=== PATIENT | female | born 1945 | race Caucasian/White ===

== ENCOUNTER 2021-01-22 11:33 | Observation (INO) | payer MEDICARE, MEDICAID ==
[~2021-01-22] VITALS: Ht 144.8 cm; Wt 47.3 kg
[2021-01-22 13:21] LABS: BASOPHILS # (AUTO) 0.1 X10'3 (0-0.2); BASOPHILS % (AUTO) 1.3 % (0-1); EOSINOPHILS # (AUTO) 0.3 X10'3 (0-0.9); EOSINOPHILS % (AUTO) 3.5 % (0-6); HEMATOCRIT 41.9 % (35.0-45.0); HEMOGLOBIN 14.1 g/dl (12.0-16.0); LYMPHOCYTES # (AUTO) 2.2 X10'3 (1.1-4.8); LYMPHOCYTES % (AUTO) 27.8 % (21-51); MEAN CORPUSCULAR HEMOGLOBIN 30.4 PG (27.0-31.0); MEAN CORPUSCULAR HGB CONC 33.6 g/dL (33.0-36.5); MEAN CORPUSCULAR VOLUME 90.5 FL (78-98); MEAN PLATELET VOLUME 6.9 FL (7.4-10.4); MONOCYTES # (AUTO) 0.7 X10'3 (0-0.9); NEUTROPHILS # (AUTO) 4.6 X10'3 (1.8-7.7); NEUTROPHILS % (AUTO) 58.4 % (42-75); PLATELET COUNT 328 X10'3 (140-440); RED BLOOD COUNT 4.63 X10'6 (4.20-5.60); RED CELL DISTRIBUTION WIDTH 14.1 % (11.5-14.5); WHITE BLOOD COUNT 7.8 X10'3 (4.5-11.0)
[2021-01-22 13:38] LABS: ALANINE AMINOTRANSFERASE 14 U/L (12-78); ALBUMIN 3.9 G/DL (3.4-5.0); ALBUMIN/GLOBULIN RATIO 1.1 (1.1-1.5); ALKALINE PHOSPHATASE 87 IU/L (46-116); ANION GAP 8 (8-16); ASPARTATE AMINO TRANSFERASE 20 U/L (10-37); BILIRUBIN,TOTAL 0.3 MG/DL (0.1-1.0); BLOOD UREA NITROGEN 9 MG/DL (7-18); BUN/CREATININE RATIO 10.3 (6.6-38.0); CALCIUM 9.1 MG/DL (8.5-10.1); CHLORIDE 98 MMOL/L (99-107); CREATININE 0.87 MG/DL (0.40-0.90); GLUCOSE 102 MG/DL (70-104); POTASSIUM 4.3 MMOL/L (3.5-5.1); SODIUM 134 MMOL/L (135-145); TOTAL CARBON DIOXIDE 27.9 MMOL/L (24-32); TOTAL PROTEIN 7.3 G/DL (6.4-8.2); eGFR 63 ML/MIN
--- NOTE | 2021-01-22 17:58 | NUR ---
PT IS AMBULATING WITH NO WEAKNESS NOTED. GAIT IS STEADY. SPEECH IS CLEAR, NO FACIAL DROOPING. NO ALOC
--- NOTE | 2021-01-22 18:01 | NUR ---
URINE COLLECTED. SENT TO LAB
[2021-01-22 18:34] LABS: CLARITY,URINE CLEAR (Clear); COLOR,URINE YELLOW (Yellow); GLUCOSE, URINE NEGATIVE (Neg); KETONES,URINE NEGATIVE (Neg); LEUKOCYTE ESTERASE ,URINE NEGATIVE (Neg); NITRITES, URINE NEGATIVE (Neg); OCCULT BLOOD,URINE NEGATIVE (Neg); PH,URINE 6.5 (4.8-8.0); PROTEIN,URINE NEGATIVE (Neg); UROBILINOGEN,URINE 0.2 E.U/dL (0.2-1.0)
--- NOTE | 2021-01-22 18:49 | NUR ---
Feli, daughter: [phone]
[2021-01-22 19:27] LABS: UA COLLECTION TYPE NON-SPECIFIED
[2021-01-22] MEDS ORDERED: DULO-31 PO ×2 (21:51→22:21)
[2021-01-22] MEDS ORDERED: AMLO2.5T2 PO (21:52)
[2021-01-22] MEDS ORDERED: APIX5TAB3 PO (21:54)
[2021-01-22] MEDS ORDERED: OXYB15TA19 PO ×2 (21:55→21:56)
[2021-01-22] MEDS ORDERED: OMEP40CA21 PO (21:56)
[2021-01-22] MEDS ORDERED: OLME5TAB3 PO (21:57)
[2021-01-22] MEDS ORDERED: ALEN70TA60 PO (21:58)
[2021-01-22] MEDS ORDERED: CALC1TAB2 PO (22:07)
[2021-01-22] MEDS ORDERED: HYDR-3973 (22:07)
[2021-01-22] MEDS ORDERED: HYDR-3686 PO (22:07)
[2021-01-22] MEDS ORDERED: HYDR-3972 PO (22:36)
[2021-01-22] MEDS ORDERED: acetaminophen 325mg tablet PO PRN (22:40)
[2021-01-22] MEDS ORDERED: magnesium hydroxide 30ml (MOM) UD suspension PO PRN (22:40)
[2021-01-22] MEDS ORDERED: ondansetron/PF 4mg/2ml inj IV PRN (22:40)
[2021-01-22] MEDS ORDERED: PERFLUTREN PROTEIN-A MICROSPHR (Optison) 0.22 MG/ML 3ML VIAL IV PRN (22:40)
[2021-01-22] MEDS: HYDROcodone/acetaminophen 10/325mg tab PO PRN (23:19)
[2021-01-22 23:52] VITALS: BP 162/75
[2021-01-23 06:00] VITALS: BP 153/85
--- NOTE | 2021-01-23 06:06 | NUR ---
Problems reprioritized. Patient report given, questions answered & plan of care reviewed with LULI Schilling.
[2021-01-23] MEDS ORDERED: heparin, porcine 5000 units/ml vial SQ SCH (08:00)
[2021-01-23] MEDS ORDERED: amLODIPine 2.5mg tablet PO SCH (08:00)
[2021-01-23] MEDS ORDERED: duloxetine 30mg CAPSULE.DR PO SCH (08:00)
[2021-01-23] MEDS: apixaban 5mg tablet PO SCH ×2 (08:42→20:31)
[2021-01-23] MEDS: pantoprazole 40mg Tablet.DR PO SCH (08:42)
[2021-01-23] MEDS: losartan 50mg tablet PO SCH (08:44)
[2021-01-23] MEDS: HYDROcodone/acetaminophen 10/325mg tab PO PRN ×2 (08:45→16:25)
[2021-01-23] MEDS: duloxetine 30mg CAPSULE.DR PO SCH (08:55)
[2021-01-23 10:00] VITALS: BP 149/82
[2021-01-23] MEDS: amLODIPine 5mg tablet PO SCH (10:50)
[2021-01-23] MEDS ORDERED: ZOLP5TAB8 PO (12:04)
[2021-01-23] MEDS ORDERED: ATOR40TA72 PO (12:34)
[2021-01-23] MEDS ORDERED: MONT10TA32 PO (12:34)
[2021-01-23] MEDS ORDERED: OLOP2.5D16 EACHEYE (12:34)
[2021-01-23] MEDS ORDERED: PRED5DRO3 EACHEYE (12:34)
[2021-01-23] MEDS ORDERED: iohexol 350MG/ML 100ml bottle IV ONE (15:34)
[2021-01-23 18:00] VITALS: BP 117/65
[2021-01-23] MEDS ORDERED: zolpidem 5mg tablet PO PRN (21:20)
[2021-01-23 22:00] VITALS: BP 144/75
[2021-01-24 06:00] VITALS: BP 160/93
--- NOTE | 2021-01-24 06:10 | NUR ---
RECEIVED REPORT FROM DHARA Fong RN
[2021-01-24] MEDS: HYDROcodone/acetaminophen 10/325mg tab PO PRN (06:51)
[2021-01-24] MEDS: losartan 50mg tablet PO SCH (07:19)
[2021-01-24] MEDS: pantoprazole 40mg Tablet.DR PO SCH (07:19)
[2021-01-24] MEDS: duloxetine 30mg CAPSULE.DR PO SCH (07:20)
[2021-01-24] MEDS: apixaban 5mg tablet PO SCH (07:20)
[2021-01-24 07:21] VITALS: BP_SYST 160
[2021-01-24] MEDS: amLODIPine 5mg tablet PO SCH (07:21)
[2021-01-24] MEDS ORDERED: atorvastatin 20mg tablet PO SCH (08:00)
[2021-01-24] MEDS ORDERED: montelukast 10mg tablet PO SCH (08:00)
[2021-01-24] MEDS ORDERED: DULO-31 PO (10:48)
--- NOTE | 2021-01-24 11:56 | NUR ---
pt d/c with instructions, understanding of instructions, and w/all belongings in wheelchair accompanied by nursing staff and daughter to private vehicle to f/u w/pcp
== END 2021-01-24 11:59 | disposition home or self-care (01) ==
LOC: ER 11:34 → ED HOLD 22:39 → ORTHO 4S 23:52
PROVIDERS: ADMIT Internal Medicine; ATTEND Internal Medicine
DX: G92 Toxic encephalopathy (principal); T50.905A Adverse effect of unspecified drugs, medicaments and biological substances, initial encounter; I67.4 Hypertensive encephalopathy; I10 Essential (primary) hypertension; G51.0 Bell's palsy; J44.9 Chronic obstructive pulmonary disease, unspecified; E78.5 Hyperlipidemia, unspecified; R32 Unspecified urinary incontinence; G89.4 Chronic pain syndrome; R44.1 Visual hallucinations; R06.00 Dyspnea, unspecified; F17.210 Nicotine dependence, cigarettes, uncomplicated; R41.82 Altered mental status, unspecified; Z79.899 Other long term (current) drug therapy; Z95.0 Presence of cardiac pacemaker; Z79.01 Long term (current) use of anticoagulants
CPT/HCPCS: 36415; 70450; 70496; 70498; 71045; 80053; 81003; 83880; 84484; 85025; 87081; 93005; 93306; 99285; G0378; Q9967

== ENCOUNTER 2022-08-21 16:46 | Emergency (ER) | payer MEDICARE, MEDICAID ==
[~2022-08-21] VITALS: Ht 144.8 cm; Wt 47.7 kg
[~2022-08-21 16:46] MED LIST: ALEN70TA60 PO; AMLO2.5T2 PO; APIX5TAB3 PO; ATOR40TA72 PO; CALC1TAB2 PO; DULO-31 PO; HYDR-3972 PO; MONT-40 PO; OLME5TAB32 PO; OLOP2.5D16 EACHEYE; OMEP40CA21 PO; OXYB15TA19 PO; PRED5DRO3 EACHEYE
[2022-08-21 17:13] LABS: BASOPHILS # (AUTO) 0.1 X10'3 (0-0.2); BASOPHILS % (AUTO) 1.1 % (0-1); EOSINOPHILS # (AUTO) 0.3 X10'3 (0-0.9); EOSINOPHILS % (AUTO) 3.8 % (0-6); HEMOGLOBIN 11.9 g/dl (12.0-16.0); LYMPHOCYTES # (AUTO) 2.2 X10'3 (1.1-4.8); LYMPHOCYTES % (AUTO) 28.8 % (21-51); MEAN CORPUSCULAR HGB CONC 32.3 g/dL (33.0-36.5); MEAN CORPUSCULAR VOLUME 89.7 FL (78-98); MEAN PLATELET VOLUME 7.5 FL (7.4-10.4); MONOCYTES # (AUTO) 0.7 X10'3 (0-0.9); MONOCYTES % (AUTO) 9.9 % (2-12); NEUTROPHILS # (AUTO) 4.2 X10'3 (1.8-7.7); NEUTROPHILS % (AUTO) 56.4 % (42-75); PLATELET COUNT 235 X10'3 (140-440); RED BLOOD COUNT 4.12 X10'6 (4.20-5.60); RED CELL DISTRIBUTION WIDTH 14.3 % (11.5-14.5); WHITE BLOOD COUNT 7.5 X10'3 (4.5-11.0)
[2022-08-21 17:25] LABS: ALANINE AMINOTRANSFERASE 19 U/L (12-78); ALBUMIN 3.9 G/DL (3.4-5.0); ALBUMIN/GLOBULIN RATIO 1.3 (1.1-1.5); ALKALINE PHOSPHATASE 83 IU/L (46-116); ANION GAP 7 (8-16); ASPARTATE AMINO TRANSFERASE 26 U/L (10-37); BILIRUBIN,TOTAL 0.4 MG/DL (0.1-1.0); BLOOD UREA NITROGEN 9 MG/DL (7-18); BUN/CREATININE RATIO 10.3 (6.6-38.0); CALCIUM 8.9 MG/DL (8.5-10.1); CHLORIDE 102 MMOL/L (99-107); CREATININE 0.87 MG/DL (0.40-0.90); GLUCOSE 98 MG/DL (70-104); POTASSIUM 3.9 MMOL/L (3.5-5.1); SODIUM 137 MMOL/L (135-145); TOTAL CARBON DIOXIDE 27.6 MMOL/L (24-32); TOTAL PROTEIN 6.8 G/DL (6.4-8.2); eGFR 63 ML/MIN
[2022-08-21 17:31] LABS: MAGNESIUM 2.1 MG/DL (1.5-2.4)
[2022-08-21 18:07] LABS: CLARITY,URINE CLEAR (Clear); COLOR,URINE STRAW (Yellow); GLUCOSE, URINE NEGATIVE (Neg); KETONES,URINE NEGATIVE (Neg); LEUKOCYTE ESTERASE ,URINE NEGATIVE (Neg); NITRITES, URINE NEGATIVE (Neg); OCCULT BLOOD,URINE NEGATIVE (Neg); PH,URINE 5.5 (4.8-8.0); PROTEIN,URINE NEGATIVE (Neg); UROBILINOGEN,URINE 0.2 E.U/dL (0.2-1.0)
[2022-08-21 18:08] LABS: UA COLLECTION TYPE CLN CATCH MIDSTREAM
--- NOTE | 2022-08-21 19:56 | NUR ---
3RD TROP CX PER ER PROVIDER
[2022-08-21 20:09] VITALS: BP 142/76
== END 2022-08-21 20:55 | disposition home or self-care (01) ==
LOC: ER 16:47
DX: R55 Syncope and collapse (principal); R41.3 Other amnesia; R40.0 Somnolence; I10 Essential (primary) hypertension; J44.9 Chronic obstructive pulmonary disease, unspecified; Z79.899 Other long term (current) drug therapy
CPT/HCPCS: 36415; 71045; 80053; 81003; 82140; 83735; 83880; 84443; 84484; 85025; 93005; 99285